=== PATIENT | male | born 1950 | race Caucasian/White ===

== ENCOUNTER 2021-06-03 10:08 | Emergency (ER) | payer OTHER ==
[2021-06-03 10:52] VITALS: BP 151/78
--- NOTE | 2021-06-03 11:20 | Emergency Department Report ---
ED Back Pain/Injury HPI - General Chief Complaint: Back Pain/Injury Stated Complaint: WEAK Time Seen by Provider: 06/03/21 11:00 Source: patient Limitations: Language Barrier - History of Present Illness Initial Comments: Patient is Emirati-speaking. emt line used. Patient is a 71-year-old male with a past medical history of diabetes, hypertension and hyperlipidemia who presents to the ER today with complaints of upper back pain. Patient states that for the past 2 to 3 months has been having mild pain to his upper back area which has been coming and going but he states that it has been getting worse over the past few days and last night when he lays on his back and on his side that made the pain worse. He also reported increased pain when he would take a deep breath, and he states that he noticed that when he would lay on his back and on his side last night. He denies any of radiation of the pain down into his arms. He states that he has had some mild tingling into both arms off and on since he started with the pain 2 to 3 months ago but nothing worse recently. He denies any radiation of the pain down into his leg or into his abdomen or into his chest. He denies any isolated chest pain or any isolated abdominal pain. He denies any nausea or vomiting. He denies any lower extremity swelling or calf pain. He denies any bowel or bladder incontinence, UTI symptoms, lower extremity weakness or saddle anesthesia. Patient states that he has seen his primary care doctor for this pain in the past and was prescribed diclofenac "and another medication but he does not recall the name of the medication. He states that when the pain got severe last night he took both medications but it did not help his pain. He denies any history of heart disease. He does admit that he traveled to [place] about 2 weeks ago. He denies any history of DVT or PE. Complaint: back pain -: month(s) (2-3 months ) - Related Data Allergies Allergy/AdvReac Type Severity Reaction Status Date / Time No Known Allergies Allergy Unverified 03/08/14 11:15 ED Review of Systems ROS: Stated complaint: WEAK Other details as noted in HPI Comment: All other systems reviewed and negative Constitutional: denies: chills, fever Eyes: denies: eye pain, eye discharge, vision change ENT: denies: ear pain, throat pain, dental pain, hearing loss, epistaxis, congestion Respiratory: shortness of breath. denies: cough, SOB with exertion, SOB at rest, wheezing Cardiovascular: denies: chest pain, palpitations, dyspnea on exertion, edema, syncope, paroxysmal nocturnal dyspnea Endocrine: no symptoms reported Gastrointestinal: denies: abdominal pain, nausea, vomiting, diarrhea, constipation, hematemesis Genitourinary: denies: urgency, dysuria, frequency, hematuria, discharge Musculoskeletal: back pain Neurological: denies: headache, weakness, numbness, paresthesias, confusion, abnormal gait, vertigo Psychiatric: denies: anxiety, depression, auditory hallucinations, visual hallucinations, homicidal thoughts, suicidal thoughts Hematological/Lymphatic: denies: easy bruising, swollen glands ED Past Medical Hx - Past Medical History Previous Medical History?: Yes Hx Hypertension: Yes Hx Diabetes: Yes Additional medical history: BPH ED Physical Exam - General Limitations: Language Barrier General appearance: alert, in no apparent distress - Head Head exam: Present: atraumatic, normocephalic, normal inspection - Eye Eye exam: Present: normal appearance, PERRL, EOMI Pupils: Present: normal accommodation - ENT ENT exam: Present: normal exam, mucous membranes moist, TM's normal bilaterally - Neck Neck exam: Present: normal inspection, tenderness (Mild diffuse paraspinal muscle tenderness noted along the cervical spine. No vertebral point tenderness.), full ROM. Absent: meningismus - Respiratory Respiratory exam: Present: normal lung sounds bilaterally. Absent: respiratory distress, wheezes, rales, rhonchi, stridor - Cardiovascular Cardiovascular Exam: Present: regular rate, normal rhythm, normal heart sounds - GI/Abdominal GI/Abdominal exam: Present: soft. Absent: distended, tenderness, guarding, rebound - Extremities Exam Extremities exam: Present: normal inspection, full ROM. Absent: normal capillary refill, pedal edema, calf tenderness - Back Exam Back exam: Present: normal inspection, full ROM, paraspinal tenderness (Diffuse bilateral paraspinal muscle tenderness noted to upload to mid thoracic back), vertebral tenderness (There is point tenderness to palpation mid thoracic spine in the interscapular area.). Absent: CVA tenderness (R), CVA tenderness (L) - Neurological Exam Neurological exam: Present: alert, oriented X3, CN II-XII intact, normal gait - Psychiatric Psychiatric exam: Present: normal affect, normal mood - Skin Skin exam: Present: intact ED Course Vital Signs 06/03/21 10:51 Temperature 98.5 F Pulse Rate 60 Respiratory 16 Rate Blood Pressure 151/78 [Right] O2 Sat by Pulse 97 Oximetry ED Medical Decision Making - Lab Data Result diagrams: 06/03/21 11:19 06/03/21 11:19 - EKG Data EKG shows normal: sinus rhythm Rate: bradycardia (55) - EKG Data Interpretation: normal EKG - Radiology Data Radiology results: report reviewed Patient: WALT JALLOH MR#: [id number] 2 : 1950 Acct:[id number] Age/Sex: 71 / M ADM Date: 06/03/21 Loc: ED Attending Dr: Ordering Physician: LINN LESLIE Date of Service: 06/03/21 Procedure(s): XR chest routine 2V Accession Number(s): [id number] cc: LINN LESLIE Fluoro Time In Minutes: CHEST 2 VIEWS INDICATION: pleuritic upper back pain. COMPARISON: None. FINDINGS: Support devices: None. Heart: Within normal limits. Lungs/Pleura: No acute air space or interstitial disease. No significant pleural effusion. IMPRESSION: No acute findings. Signer Name: Alberto Pond MD Signed: 06/03/2021 11:52 AM Workstation Name: [id number] Transcribed By: ES Dictated By: Alberto Pond MD Electronically Authenticated By: Alberto Pond MD Signed Date/Time: 06/03/21 1152 DD/ 1151 TD/TT: - Medical Decision Making Used emt to review all results and discharge instructions. All labs reviewed--CBC and CMP unremarkable. Troponin negative. D-dimer was normal. EKG shows no acute ischemic changes, STEMI or significant dysrhythmias. Chest x-ray shows nothing acute. His urinalysis is normal. Patient currently resting comfortably. He is not in any significant pain or respiratory distress. He is neurologically intact with a normal gait in the ER. His vital signs are stable. His history, physical, current condition and work-up today does not suggest PE, unstable angina/PA, aortic dissection, pneumonia, cauda equina or any other cord impingement syndrome, kidney stone or any other emergent conditions warranting additional testing, admission or consultation at this time. Patient back pain is probably more musculoskeletal at this time. Discussed lab and imaging results with patient. Discussed suspected diagnosis with patient I recommend that he follows up with a deck specialist as he may need an MRI of his back. Patient given referral information to [facility]. Patient expressed understanding of all instructions. All questions were answered. Patient was stable at time of discharge. Critical Care Time: Yes Critical care time in (mins) excluding proc time.: 30 Critical care attestation.: If time is entered above; I have spent that time in minutes in the direct care of this critically ill patient, excluding procedure time. Critical Care Time: I had to use lawn sprinkler servicer line to get H&P, explain the type of work-up and the reason for the work-up as well as results and discharge instruction ED Disposition Clinical Impression: Thoracic back pain Disposition: DC-01 TO HOME OR SELFCARE Is pt being admited?: No Does the pt Need Aspirin: No Condition: Stable Instructions: Acute Back Pain, Adult Additional Instructions: I recommend that you continue the diclofenac and the other pain medication prescribed to you by your PCP. I recommend that you follow-up with your primary care doctor and or orthospine specialist because if your pain continues you may need an outpatient MRI. Return to the ER if your symptoms changes or worsens in any way. Referrals: PRIMARY CARE, [Primary Care Provider] - 3-5 Days [facility] [Provider Group] - 3-5 Days Time of Disposition: 13:34
[2021-06-03 11:54] LABS: Basophils % (Auto) 0.7 % (0.0-1.8); Eosinophils # (Auto) 0.2 K/mm3 (0.0-0.4); Eosinophils % (Auto) 3.2 % (0.0-4.3); Hematocrit 43.2 % (35.5-45.6); Hemoglobin 14.8 gm/dl (11.8-15.2); Lymphocytes # (Auto) 1.5 K/mm3 (1.2-5.4); Lymphocytes % (Auto) 25.1 % (13.4-35.0); Mean Corpuscular HGB Conc 34 % (32-34); Mean Corpuscular Volume 86 fl (84-94); Monocytes # (Auto) 0.5 K/mm3 (0.0-0.8); Platelet Count 170 K/mm3 (140-440); Red Blood Count 5.02 M/mm3 (3.65-5.03); Red Cell Distribution Width 13.7 % (13.2-15.2)
--- NOTE | 2021-06-03 11:57 | XRay Report ---
CHEST 2 VIEWS INDICATION: pleuritic upper back pain. COMPARISON: None. FINDINGS: Support devices: None. Heart: Within normal limits. Lungs/Pleura: No acute air space or interstitial disease. No significant pleural effusion. IMPRESSION: No acute findings. Signer Name: Alberto Pond MD Signed: 06/03/2021 11:52 AM Workstation Name: [email or web address]
[2021-06-03 12:09] LABS: Bilirubin,Urine NEG (Negative); Blood,Urine NEG (Negative); Color,Urine Yellow (Yellow); Protein,Urine <15 mg/dL mg/dL (Negative); Urobilinogen,Urine < 2.0 mg/dL (<2.0); WBC,Urine < 1.0 /HPF (0.0-6.0)
[2021-06-03 12:19] LABS: Alanine Aminotransferase 24 units/L (7-56); Albumin 4.2 g/dL (3.9-5); Blood Urea Nitrogen 15 mg/dL (9-20); Calcium 9.2 mg/dL (8.4-10.2); Hemolysis Index 20
[2021-06-03 12:27] LABS: BUN/Creatinine Ratio 21
--- NOTE | 2021-06-04 18:07 | Electrocardiograph Report ---
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
== END 2021-06-03 13:35 | disposition home or self-care (01) ==
LOC: ED 10:08
DX: M54.6 Pain in thoracic spine (principal); I10 Essential (primary) hypertension; E11.9 Type 2 diabetes mellitus without complications
CPT/HCPCS: 36415; 71046; 80053; 81001; 84484; 85025; 85379; 93005